=== PATIENT | female | born 1945 | race Caucasian/White ===

== ENCOUNTER 2019-03-05 12:28 | Emergency (ER) | payer MEDICARE, OTHER ==
[2019-03-05 13:00] VITALS: BP 147/79
--- NOTE | 2019-03-05 13:18 | UC ---
Skin Complaint HPI - HPI Summary HPI Summary: 73-year-old female presents with tick bite to her left shoulder. States she discovered the tick this morning. Tick is still embedded. Complains of some tenderness at the site of the bite. Denies fever, chills, rash, flulike illness , myalgias, joint pain or swelling. - History of Current Complaint Chief Complaint: UCSkin Time Seen by Provider: 03/05/19 13:16 Stated Complaint: TICK (SHOULDER) Hx Obtained From: Patient Pain Intensity: 9 - Allergy/Home Medications Allergies/Adverse Reactions: Allergies Allergy/AdvReac Type Severity Reaction Status Date / Time nicotine patch Allergy See Comment Uncoded 03/05/19 12:54 Home Medications: Home Medications Sertraline* [Zoloft*] 25 mg PO DAILY 03/05/19 [History Confirmed 03/05/19] PMH/Surg Hx/FS Hx/Imm Hx Cardiovascular History: Hypertension Respiratory History: COPD Psychological History: Depression - Surgical History Surgical History: Yes Surgery Procedure, Year, and Place: RIGHT TOTAL KNEE [id number]. NECK FUSION-[place]. REPAIR OF ARM FX A CHILD - Family History Known Family History: Positive: Hypertension - Social History Occupation: Disabled Lives: With Family Alcohol Use: Occasionally Substance Use Type: None Smoking Status (MU): Heavy Every Day Tobacco Smoker Type: Cigarettes Amount Used/How Often: 1/2-3/4 PPD X 49 YEARS Household Exposure Type: Cigarettes Review of Systems All Other Systems Reviewed And Are Negative: Yes Constitutional: Negative: Fever, Chills Skin: Positive: Other - See HPI. Negative: Rash Respiratory: Positive: Negative Cardiovascular: Positive: Negative Gastrointestinal: Positive: Negative Genitourinary: Positive: Negative Musculoskeletal: Positive: Negative Neurological: Positive: Negative Is Patient Immunocompromised?: No Physical Exam - Summary Physical Exam Summary: GENERAL APPEARANCE: Alert and cooperative chronically ill appearing older adult female who appears to be in no acute distress. CARDIAC: Normal S1 and S2. No S3, S4 or murmurs. Rhythm is regular. There is no peripheral edema, cyanosis or pallor. Extremities are warm and well perfused. Capillary refill is less than 2 seconds. Peripheral pulses intact. LUNGS: Clear to auscultation without rales, rhonchi, wheezing or diminished breath sounds. ABDOMEN: Positive bowel sounds. Soft, nondistended, nontender. No guarding or rebound. No masses or hepatosplenomegally. MUSKULOSKELETAL: ROM intact to all extremities. No joint erythema or tenderness. Normal muscular development. Normal gait. SKIN: Skin normal color, texture and turgor for age. Embedded adult female deer tick to her left anterior shoulder tetanus not engorged with some mild localized erythema at the site of the bite. Triage Information Reviewed: Yes Vital Signs: Initial Vital Signs Temp 97.7 F 03/05/19 12:55 Pulse 71 03/05/19 12:55 Resp 17 03/05/19 12:55 BP 147/79 03/05/19 12:55 Pulse Ox 97 03/05/19 12:55 Vital Signs Reviewed: Yes Course/Dx - Course Course Of Treatment: 73-year-old female presents with tick bite to her left shoulder. States she discovered the tick this morning. Tick is still embedded. Complains of some tenderness at the site of the bite. Denies fever, chills, rash, flulike illness , myalgias, joint pain or swelling. Afebrile. Hypertensive otherwise vital signs stable. Patient had an embedded adult female deer tick to her left anterior shoulder tetanus not engorged with some mild localized erythema at the site of the bite. Remainder of exam was unremarkable. The tick was removed in its entirety using a tick twister. I reviewed with the patient that with a tick that is not engorged that it is likely been attached for less than 24 hours and therefore has a very small chance of transmitting Lyme disease and I' m recommending watchful waiting at this time. I reviewed the signs and symptoms of Lyme disease with the patient as well as provided anticipatory guidance and warning symptoms. She is to follow-up with her primary care provider as needed. Verbalizes understanding and agrees with plan of care. - Differential Diagnoses - Skin Complaint Differential Diagnoses: Local Allergic Reaction, Tick Born Illness - Diagnoses Provider Diagnosis: Tick bite of left shoulder Discharge ED - Sign-Out/Discharge Documenting (check all that apply): Patient Departure All imaging exams completed and their final reports reviewed: No Studies - Discharge Plan Condition: Stable Disposition: HOME Patient Education Materials: Tick Bite (ED) Referrals: Ray Cruz MD [Primary Care Provider] - If Needed Additional Instructions: Ticks transmit infection only after they have attached and then taken a blood meal from their new host. A tick that has not attached cannot not pass any infection. Since the deer tick that transmits Lyme disease typically feeds for more than 36 hours before transmitting the organisim that causes Lyme disease, the risk of acquiring Lyme disease from an tick bite is extremely small, even in an area where the disease is common. There is no benefit of blood testing for Lyme disease at the time of the tick bite because even people who become infected will not have a positive blood test until approximately two to six weeks after the tick bite. To try to avoid getting bitten by a tick, you can: * Wear shoes, long-sleeved shirts, and long pants when you go outside. Keep ticks away from your skin by tucking your pants into your socks. * Wear light colors so you can spot any ticks that get on your clothes. * Wear bug spray or cream that contains DEET. (Do not use DEET on babies younger than 2 months.) On your clothes and gear, you can use bug repellents that have a chemical called "permethrin." * Shower within 2 hours of being outdoors if you think you have been in an area where there are ticks. * Put dry clothes briefly (for about 4 minutes) in a dryer after being outdoors. * Check your clothes and body for ticks after being outdoors. Be sure to check your scalp, waist, armpits, groin, and backs of your knees. Check your children , too. After a tick bite, you will need to monitor for signs of Lyme disease over the nexter several weeks even if you have been given antibiotics to prevent the infection. Seek immediate medical attention if you develop a bullseye rash, fever, flu-like symptoms including headache, stiff neck, fatigue, muscle aches, joint pain or swelling. - Billing Disposition and Condition Condition: STABLE Disposition: Home
== END 2019-03-05 13:35 | disposition home or self-care (01) ==
LOC: UCCORT 12:28
DX: S40.262A Insect bite (nonvenomous) of left shoulder, initial encounter (principal); W57.XXXA Bitten or stung by nonvenomous insect and other nonvenomous arthropods, initial encounter; I10 Essential (primary) hypertension; J44.9 Chronic obstructive pulmonary disease, unspecified; F32.9 Major depressive disorder, single episode, unspecified; F17.210 Nicotine dependence, cigarettes, uncomplicated; Z79.899 Other long term (current) drug therapy; Z88.8 Allergy status to other drugs, medicaments and biological substances
CPT/HCPCS: 99201; G0463

== ENCOUNTER 2019-07-13 10:21 | Emergency (ER) | payer MEDICARE ==
[2019-07-13 11:33] VITALS: BP 148/83
--- NOTE | 2019-07-13 11:56 | UC ---
Minor Trauma HPI - HPI Summary HPI Summary: 73 yo female slipped and fell forward on a rutted driveway last PM No LOC c/o severe holocranial headache c/o severe neck pain c/o severe left shoulder pain with inability to abduct it no cp or sob no abd or pelvis pain - History of Current Complaint Chief Complaint: UCUpperExtremity Stated Complaint: SP FALL-LT SHOULDER INJURY Time Seen by Provider: 07/13/19 11:48 Hx Obtained From: Patient Onset/Duration: Sudden Onset, Lasting Hours Onset Of Pain: Immediate Severity Initially: Severe Severity Currently: Severe Pain Intensity: 8 Pain Scale Used: 0-10 Numeric Mechanism Of Injury: Fall From A Standing Position Aggravating Factor(s): Movement Alleviating Factor(s): Nothing Associated Signs And Symptoms: Negative: Loss Of Consciousness, Ecchymosis, Swelling Body - Head: 1 - tender 2 - tender/unable to abduct 3 - pain - Allergies/Home Medications Allergies/Adverse Reactions: Allergies Allergy/AdvReac Type Severity Reaction Status Date / Time nicotine Allergy Seizures Verified 07/13/19 11:27 from Nicotine Patch Home Medications: Home Medications traZODone TAB* [Desyrel TAB*] 50 - 100 mg PO BEDTIME 10/18/13 [History Confirmed 07/13/19] Albuterol 2.5MG/3ML (0.083%)* [Ventolin 2.5 MG/3 ML NEB.SHIRA*] 2.5 mg INH Q4H PRN 07/13/19 [History Confirmed 07/13/19] Famotidine TAB* [Pepcid 20 MG TAB*] 40 mg PO EVERY OTHER DAY 07/13/19 [History Confirmed 07/13/19] Folic Acid TAB* [Folvite TAB*] 1 mg PO DAILY 07/13/19 [History Confirmed ] HYDROcodone/ACETAMIN 5-325 MG* [Reed 5-325 TAB*] 1 tab PO BID PRN #10 tab MDD 2 07/13/19 [Rx] Ibuprofen TAB* [Advil TAB*] 800 mg PO Q8H PRN 07/13/19 [History Confirmed ] buPROPion HCl [Wellbutrin Sr] 50 mg PO BID 07/13/19 [History Confirmed 07/13/19] PMH/Surg Hx/FS Hx/Imm Hx Previously Healthy: Yes Psychological History: Anxiety, Depression - Surgical History Surgical History: Yes Surgery Procedure, Year, and Place: RIGHT TOTAL KNEE [id number]. [place]K FUSION[place]. REPAIR OF ARM FX A CHILD - Family History Known Family History: Positive: Hypertension - Social History Alcohol Use: Occasionally Substance Use Type: None Smoking Status (MU): Heavy Every Day Tobacco Smoker Type: Cigarettes Amount Used/How Often: ~1/2 PPD Length of Time of Smoking/Using Tobacco: Since Age 17 Household Exposure Type: Cigarettes Review of Systems All Other Systems Reviewed And Are Negative: Yes Constitutional: Positive: Negative Skin: Positive: Negative Eyes: Positive: Negative ENT: Positive: Negative Cardiovascular: Positive: Negative Gastrointestinal: Positive: Negative Genitourinary: Positive: Negative Motor: Positive: Negative Musculoskeletal: Positive: Arthralgia - L shoulder/neck Neurological/Mental Status: Positive: Headache Psychological: Positive: Negative Physical Exam Triage Information Reviewed: Yes Appearance: Well-Nourished, Pain Distress Vital Signs: Initial Vital Signs Temp 97.1 F 07/13/19 11:25 Pulse 76 07/13/19 11:25 Resp 20 07/13/19 11:25 BP 148/83 07/13/19 11:25 Pulse Ox 100 07/13/19 11:25 Vital Signs Reviewed: Yes Eyes: Positive: Conjunctiva Clear ENT: Positive: Hearing grossly normal. Negative: Nasal congestion, Nasal drainage, Trismus, Muffled voice, Hoarse voice Neck: Positive: Tenderness @ - midline c2-7 Respiratory: Positive: Lungs clear, Normal breath sounds, No respiratory distress, No accessory muscle use Cardiovascular: Positive: RRR, No Murmur Bowel Sounds: Positive: Present Musculoskeletal: Positive: ROM Limited @ - left shoulder unable to abduct Neurological: Positive: Alert Psychological Exam: Normal Skin Exam: Other - superficial abrasions Diagnostics - Radiology No standard instances Radiology Interpretation Completed By: Radiologist Summary of Radiographic Findings: IMPRESSION: 1. No cervical spine fracture. 2. Focal kyphotic curvature and 2 mm retrolisthesis centered at C5-C6 (severe C5- C6 degenerative disc disease). 3. Varying degrees of multilevel spondylosis results in mild to moderate osseous encroachment spinal canal at C4-C5. There is moderate bilateral neural foraminal stenosis at C5-C6. CT brain - negative. left shoulder - no fracture Minor Trauma Course/Dx - Differential Dx/Diagnosis Provider Diagnosis: Cervicogenic headache, Degenerative disc disease, cervical, Left rotator cuff tear Discharge ED - Sign-Out/Discharge Documenting (check all that apply): Patient Departure All imaging exams completed and their final reports reviewed: Yes - Discharge Plan Condition: Stable Disposition: HOME Prescriptions: HYDROcodone/ACETAMIN 5-325 MG* [Reed 5-325 TAB*] 1 tab PO BID PRN #10 tab MDD 2 PRN Reason: Pain - Severe Patient Education Materials: Rotator Cuff Injury (ED), How to Use a Sling (ED) , Soft Cervical Collar (ED) Referrals: Ray Cruz MD [Primary Care Provider] - As Soon As Possible (about your neck pain) Lefty Quijano MD [Medical Doctor] - (about your shoulder injury) Additional Instructions: advil or aleve rest sling soft collar - Billing Disposition and Condition Condition: STABLE Disposition: Home
[2019-07-13] MEDS ORDERED: Acetaminophen TAB* 325 MG PO ONE (13:14)
[2019-07-13] MEDS ORDERED: HYDROcodone/ACETAMIN 5-325 MG* 1 TAB PO ONE (13:23)
== END 2019-07-13 13:33 | disposition home or self-care (01) ==
LOC: UCCORT 10:21
DX: M50.322 Other cervical disc degeneration at C5-C6 level (principal); M47.892 Other spondylosis, cervical region; M40.292 Other kyphosis, cervical region; M43.12 Spondylolisthesis, cervical region; M48.02 Spinal stenosis, cervical region; M75.102 Unspecified rotator cuff tear or rupture of left shoulder, not specified as traumatic; R51 Headache; F31.9 Bipolar disorder, unspecified; F32.9 Major depressive disorder, single episode, unspecified; F17.210 Nicotine dependence, cigarettes, uncomplicated; Z91.09 Other allergy status, other than to drugs and biological substances; W01.0XXA Fall on same level from slipping, tripping and stumbling without subsequent striking against object, initial encounter; Y92.093 Driveway of other non-institutional residence as the place of occurrence of the external cause
CPT/HCPCS: 70450; 72125; 99214; G0463